=== PATIENT | female | born 1940 | race Caucasian/White ===

== ENCOUNTER 2017-12-28 09:55 | Outpatient (CLI) | payer MEDICARE, SELFPAY ==
[2017-12-28 11:15] LABS: Abs Immature Grans 0.01 k/cumm (0.0-0.09); Absolute Basophil Count 0.01 k/cumm (0.0-0.2); Absolute Eosinophil Count 0.03 k/cumm (0.0-0.7); Absolute Lymphocyte Count 1.19 k/cumm (1.2-3.4); Absolute Monocyte Count 0.74 k/cumm (0.11-0.7); Absolute Neutrophil Count 4.07 k/cumm (1.2-6.7); Basophils % 0.2; Eosinophils % 0.5; HCT 40.5 % (36.0-46.0); HGB 12.8 g/dL (12.0-15.5); Immature Grans % 0.2; Lymphocytes % 19.7; Mean Corp. HGB Concentration 31.6 g/dL (32.0-36.0); Mean Corpuscular Hemoglobin 30.3 pg (27.0-33.0); Mean Platelet Volume 9.9 fL (8.0-11.0); Monocytes % 12.2; Neutrophils % 67.2; Platelet Count 253 x1000/uL (130-400); RBC 4.22 m/cumm (4.00-5.20); RBC Distribution Width 13.5 % (11.7-14.6); White Blood Cell Count 6.05 k/cumm (4.4-10.8)
[2017-12-28 12:12] LABS: Hemoglobin A1C 5.9 % (4.5-6.2)
[2017-12-28 13:33] LABS: ALT 32 U/L (12-78); AST 24 U/L (15-37); Alkaline Phosphatase 75 U/L (46-116); Anion Gap 8.2 mmol/L (3-11); BUN 18 mg/dL (7-18); Bilirubin, Total 0.6 mg/dL (0.2-1.0); CO2 28.8 mmol/L (21.0-32.0); CREATININE 1.13 mg/dL (0.55-1.02); Calcium 9.7 mg/dL (8.5-10.1); Chloride 103 mmol/L (98-107); Cholesterol 257 mg/dL (50-200); Estimated GFR 46.45 (mL/min/1.73m2); Glucose 80 mg/dL (70-100); HDL Cholesterol 82 mg/dL (40-60); LDL CHOLESTEROL 159 mg/dL (<100); Potassium 4.4 mmol/L (3.5-5.1); Sodium 140 mmol/L (136-145); TSH (W/Ref FT4) 0.43 uIU/mL (0.358-3.74); Total Protein 7.2 g/dL (6.4-8.2); Triglyceride 95 mg/dL (30-150)
== END 2017-12-28 10:15 ==
PROVIDERS: PCP Family Medicine; Visit Provider Internal Medicine
DX: R73.09 Other abnormal glucose (principal); I10 Essential (primary) hypertension; R41.3 Other amnesia
CPT/HCPCS: 80053; 80061; 83721; 83036; 84443; 85025

== ENCOUNTER 2018-10-19 10:51 | Outpatient (REF) | payer MEDICARE, SELFPAY ==
--- NOTE | 2018-10-19 09:59 | SKI_PTH ---
PATIENT: Brittany Marks LOC: [facility] U#:[id number] AGE/SX: 78/F ROOM: RE10/19/[address]: Barrington Hicks MD : [id number] BED: DIS: 10/19/2018 SPEC #: [id number] RECD: 10/19/18 17:58 STATUS: KENDALL REQ #: [id number] JOSHUA: 10/19/18 09:[address]: Barrington Hicks DEPT: Surgical Specimen RECD BY: Queta Desai ENTERED: 10/19/18 17:59 SP TYPE: DARWIN DON DR: Bro Montero MD Tissues: 1 - SKIN BIOPSY(SHAVE/PUNCH) Procedures: SKIN LEVEL 4 Comments: [id number]
== END 2018-10-19 11:11 ==
LOC: LBN 10:51
PROVIDERS: PCP Family Medicine; Visit Provider Otolaryngology
DX: D04.39 Carcinoma in situ of skin of other parts of face (principal)
CPT/HCPCS: 88305

== ENCOUNTER 2019-09-13 19:15 | Outpatient (REF) | payer MEDICARE, SELFPAY ==
[2019-09-13 19:36] LABS: CREATININE 1.17 mg/dL (0.55-1.02); Potassium 4.4 mmol/L (3.5-5.1)
== END 2019-09-13 19:35 ==
LOC: LBN 19:15
PROVIDERS: PCP Nurse Practitioner; Visit Provider Nurse Practitioner
DX: I10 Essential (primary) hypertension (principal)
CPT/HCPCS: 82565; 84132

== ENCOUNTER 2020-10-03 10:21 | Day surgery (SDC) | payer MEDICARE, SELFPAY ==
--- NOTE | 2020-10-03 10:56 | W.ANESPRE ---
General Info Date of Service Date Performed: 10/03/20 Height: 5 ft 3 in Weight: 50.349 kg Body Mass Index (BMI): 19.6 Surgical Procedure: Operation Date: 10/03/20 13:40 Proposed Procedures Side Surgeon p Cataract Extraction with IOL Implant Lance Piña MD Meds Allergies and Home Medications Allergies Allergy/AdvReac Type Severity Reaction Status Date / Time codeine Allergy Unknown Unverified 10/03/20 10:56 nabumetone Allergy Unknown Unverified 10/03/20 10:56 Home Medication Medication Instructions Recorded timolol maleate 1 drp OPHTHALMIC QAM drp 10/18/12 latanoprost 1 drp OU HS drp 10/30/12 lisinopril 5 mg tablet 5 mg PO DAILY #90 tab-cap 08/28/20 Current Visit Medications: Current Medications Generic Name Dose Route Start Last Admin Trade Name Freq PRN Reason Stop Dose Admin Acetaminophen 1,000 mg 10/03/20 06:00 Acetaminophen 500 Mg Tab PO Q4H PRN PRN Miscellaneous Medication 0 ml 10/03/20 06:00 Prednisolone 1%, Moxifloxacin 0.5%, Nepafenac 0.1% 5ml Btl OD DIRECTED AMAURY Miscellaneous Medication 0 ml 10/03/20 06:00 Tropicam./Phenyleph. 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; SEBORRHEIC KERATOSIS RBC microcytosis (01/22/13) Surgical History Surgical History Skin Cancer Removal (06/14/13) LEFT CHEEK Tobacco Smoking/Tobacco Use Status: Former Tobacco Use Alcohol Alcohol Intake: never Substance Use Substance use: Never Substance use type: does not use Vital Signs and Lab Results Lab Results Blood Type / Crossmatch: No Data to Display Complete Blood Count: No Data to Display Complete Metabolic Panel: No Data to Display Liver Function Panel: No Data to Display Coagulation Panel: No Data to Display Cardiac Panel: No Data to Display Arterial Blood Gas: No Data to Display Venous Blood Gas: No Data to Display Pancreas Panel: No Data to Display Thyroid Panel: No Data to Display Infectious Disease: No Data to Display Blood Cultures: No Data to Display Toxicology Panel: No Data to Display Anesthesia Assessment and Plan Anesthesia History Personal History: No History of Anesthesia Complications Family History: No Family History of Anesthesia Complications Exercise Tolerance Exercise Tolerance: Metabolic Equivalents>4 Pertinent Negatives Pertinent Negatives: No Symptoms of GERD, No Major Cardiovascular Symptoms or Complaints, No Major Pulmonary Symptoms or Complaints and Other (Patient has severe dementia. Son is her POA, came back to sign for her. Patient is pleasant. ) Cardiac & Pulmonary Exam Cardiac Exam: Normal S1/S2 Heart Sounds Pulmonary Exam: Clear Bilateral Breath Sounds Airway Exam Known Difficult Airway: No Mallampati Class: 2 Mouth Opening: Normal (> 3cm) Thyromental Distance: Greater than 3 cm Neck Range of Motion: Full ROM Neck Circumference: Normal Teeth Condition: Normal Dentition ASA Classification ASA Score: ASA 2 Emergency Case?: No NPO Status NPO Status: NPO Clears >2 hours, Solids >8 hours Anesthesia Plan Resuscitation Status: Full Code Anesthesia Technique: MAC Anesthesia Airway Planned: Natural Airway Monitors Used: Standard Monitors Preoperative Comments:: Asked for PIV placement prior due to patient history of severe dementia.
[2020-10-03] MEDS: Tropicam./Phenyleph. (1/2.5%) 5 ML BTL OD ×3 (10:57→11:11)
[2020-10-03 10:58] VITALS: BP 164/82; PULSE 58; RESP 16; TEMP 36.2; O2SAT 98
[2020-10-03 10:59] VITALS: BMI 19.6
[2020-10-03] MEDS: Lactated Ringers 1,000 ML 30 ML IV (11:35)
[2020-10-03] MEDS: Tetracaine 0.5% 4 ML BTL OD (12:01)
[2020-10-03] MEDS: Lidocaine 1% Pres-Free 5 ML VIAL (12:02)
[2020-10-03] MEDS: Balanced Salt Soln.-PLUS 500 ML BAG (12:03)
[2020-10-03] MEDS: Lidocaine 2% Jelly 6 ML SYR (12:04)
[2020-10-03] MEDS: Duovisc Viscoelastic System EACH 1 EACH (12:04)
[2020-10-03] MEDS: Povidone-Iodine Ophth 30 ML BTL (12:05)
[2020-10-03 12:20] VITALS: BP 171/86; PULSE 66; RESP 18; TEMP 36.9; O2SAT 99
--- NOTE | 2020-10-03 12:23 | W.PM.DSUDISC ---
Discharge Plan Disposition Patient Disposition: HOME Condition: Good Discharge Details Attending Provider: Lance Piña Primary Care Provider: Fallon Beltre Home Meds and New Rx's Prescriptions: No Action timolol maleate 5 ML gel forming solution 1 drp Ophthalmic QAM RF: 0 latanoprost 2.5 ML drops 1 drp OU HS RF: 0 lisinopril 5 mg tablet 5 mg PO DAILY Qty: 90 RF: 4 Discharge Instructions Stand Alone Forms: Post-op Topical Cataract, Layo Oshea (DSU) Discharge Orders Discharge Orders: Discharge Order (Routine); Ordered 10/03/20 Ordered By: Lance Piña DS: Diagnosis Discharge Diagnosis (1) Cortical cataract of right eye: Status: Resolved (2) Nuclear sclerotic cataract of right eye: Status: Resolved
--- NOTE | 2020-10-03 12:25 | ROE_ITS ---
Date of service: 10/03/20 Time of Service: 12:25 Operative Note Operative Note DATE OF PROCEDURE: 10/03/20 PRE-OP DIAGNOSIS: Nuclear/cortical cataract, right eye POST-OP DIAGNOSIS: same PROCEDURE: Cataract extraction using phacoemulsification with intraocular lens implant, right eye SURGEON: Lance Piña ANESTHESIA TYPE: Local By Surgeon and MAC Refer to Anesthesia Record ESTIMATED BLOOD LOSS: 0 PATHOLOGY: none sent COMPLICATIONS: None Patient was transported to: same day Patient's condition: stable Implants: Ulysses & Ulysses/JANET Tecnis [id number] Indications: Progressive visual loss due to cataract, right eye Procedure Description: CATARACT SURGERY OPERATIVE REPORT PREOPERATIVE DIAGNOSIS: 1. Nuclear/cortical cataract, right eye POSTOPERATIVE DIAGNOSIS: Same OPERATION: 1. Cataract extraction using phacoemulsification with posterior chamber intraocular lens implant, right eye. IOL: IOL Disk Recoater/Model: Ulysses & Ulysses / JANET Tecnis [id number] IOL Power: + 18.5 diopters IOL Serial Number: [id number] Optic Diameter: 6.0mm Haptic/Overall Diameter: 13.0mm PHACO INFO: Arturo [employer] Mediaurion Vision System with OZil and Active Fluidics Cumulative Dispersed Energy (CDE): 9.36 seconds SURGEON: Lance Piña MD, CORTEZ ANESTHESIA: Monitored Anesthesia Care (MAC), with local sub-tenon's anesthetic infiltration COMPLICATIONS: None SPECIMENS: None INDICATIONS FOR PROCEDURE: The patient is an 80-year-old lady with history of diminished visual acuity in her right eye secondary to the development of nuclear and cortical cataract. She was significantly symptomatic that she desired cataract surgery and attempt to improve and maximize her vision. The option of cataract surgery was offered to the patient and she wished to proceed. PROCEDURE: The correct surgical eye was identified and marked as the right eye and the pupil was dilated in the preoperative area using mydriatics and cycloplegics. The dilated pupil size was 7.5 mm. She elected to proceed without oral sedation. The patient was brought to the operating room where cardiopulmonary monitoring was instituted and surgical time-out was performed, confirming the correct operative eye and IOL power. Topical anesthesia was administered and ophthalmic povidone-iodine 5% was instilled into the conjunctival fornices. Lidocaine gel was applied to the cornea and the cristino-ocular area was prepped with Betadine 10% solution and draped in the usual sterile fashion for intraocular surgery, including an aperture drape. A Tegaderm transparent film dressing was cut in half and used to cover the lashes and lid margins. Care was taken to sequester the lashes and lid margins under the Tegaderm dressing. A lid speculum was placed between the lids of the operative eye and the Sue-Adrienne operating microscope was maneuvered into position. Derek scissors were then used to make a conjunctival buttonhole approximately 6mm posterior to the limbus in the inferonasal quadrant. Blunt dissection was carried out to expose bare sclera, and a blunt-tipped sub-tenon?s anesthesia cannula was introduced and passed posteriorly along the globe where non- preserved plain lidocaine was injected into posterior sub-Tenon?s space. A sideport knife was used to make a paracentesis port inferotemporally. Intraocular phenylephrine/lidocaine was injected into the anterior chamber. The anterior chamber was filled with viscoelastic. A 2.4mm keratome knife was used to create a half-thickness groove at the limbus and then to construct a three- plane near-clear corneal tunnel extending 2.0mm into clear cornea superiortemporally. A flap was raised on the anterior capsule and capsulorhexis forceps were used to complete a continuous curvilinear capsulorhexis of 5.5 mm. Balanced salt solution was then used to perform cortical cleaving hydrodissection and nuclear hydrodelineation until the lens could be freely rotated within the capsular bag. The lens nucleus was then disassembled and removed within the capsular bag and iris plane using phacoemulsification. Residual cortical material was removed using the I/A handpiece. The posterior capsule was carefully polished to remove as much residual lens epithelial cells as safely possible. The capsular bag was then inflated and the anterior chamber deepened with viscoelastic. The lens implant described above was inserted into the capsular bag using the JANET [employer] Injector. A Kuglen hook was used to dial the IOL into position. Residual viscoelastic was then removed first from posterior to the IOL, then from the anterior chamber using the I/A handpiece. The lens implant was noted to center nicely within the capsular bag. The incisions were stromally hydrated, and the anterior chamber was reformed using BSS. Then 0.5cc of moxifloxacin 1.0mg/ml were injected into the capsular bag and anterior chamber. The incisions were checked with a Weck spear and found to be secure. Several drops of ophthalmic povidone-iodine 5% were then applied to the eye followed by two drops of Imprimis combination prednisolone/moxifloxacin/nepafenac solution. The drapes were removed and a clear plastic protective eye shield was placed over the eye. The patient was then returned to Same Day Surgery in stable condition.
--- NOTE | 2020-10-03 13:00 | W.ANESPOSTOP ---
Postoperative Evaluation Date, Time and Location Date Performed: 10/03/20 Time Performed: 12:22 Patient Location: Day Surgery Unit Vital Signs Most Recent Imported Vital Signs: Most Recent Vital Signs Temp Pulse Resp BP Pulse Ox 36.9 C 66 18 171/86 H 99 10/03/20 12:20 10/03/20 12:20 10/03/20 12:20 10/03/20 12:20 10/03/20 12:20 Pain Score Most Recent Pain Score: Most Recent Pain Score Pain Level 0 10/03/20 12:20 Assessment Mental Status: Awake (Alert & Oriented to Patient Baseline) Airway and Respiratory Function: Patent airway with normal (patient baseline) respiratory exam Cardiovascular Function: Hemodynamically Stable Hydration Status: Adequately Hydrated Nausea & Vomiting: No Nausea or Vomiting Pain: Pt. Denies Any Pain Peripheral Nerve Block: Patient did not receive a nerve block
== END 2020-10-03 13:06 | disposition home or self-care (01) ==
PROVIDERS: PCP Nurse Practitioner; Visit Provider Ophthalmology
PROC: (CPT 66984; principal; 2020-10-03 13:30)
DX: H25.11 Age-related nuclear cataract, right eye (principal); I10 Essential (primary) hypertension; M06.9 Rheumatoid arthritis, unspecified
CPT/HCPCS: 66984; V2632

== ENCOUNTER 2020-10-15 03:38 | Outpatient (CLI) | payer MEDICARE, SELFPAY ==
[2020-10-15 10:33] LABS: Source Nasal/Nares
[2020-10-15 12:51] LABS: COVID-19 PCR Negative (Negative)
== END 2020-10-15 03:39 | disposition home or self-care (01) ==
LOC: LBO 03:38
PROVIDERS: PCP Nurse Practitioner; Visit Provider Ophthalmology
DX: Z20.822 Contact with and (suspected) exposure to COVID-19 (principal); Z01.818 Encounter for other preprocedural examination
CPT/HCPCS: 87635

== ENCOUNTER 2020-10-17 09:38 | Day surgery (SDC) | payer MEDICARE, SELFPAY ==
[2020-10-17 09:50] VITALS: BP 150/90; PULSE 64; RESP 16; TEMP 36.7; O2SAT 98
[2020-10-17] MEDS: Tropicam./Phenyleph. (1/2.5%) 5 ML BTL OS ×3 (10:16→10:29)
--- NOTE | 2020-10-17 10:32 | W.ANESPRE ---
General Info Date of Service Date Performed: 10/17/20 Height: 5 ft 3 in Weight: 50.2 kg Body Mass Index (BMI): 19.5 Surgical Procedure: Operation Date: 10/17/20 12:40 Proposed Procedures Side Surgeon p Cataract Extraction with IOL Implant Left Lance Piña MD Meds Allergies and Home Medications Allergies Allergy/AdvReac Type Severity Reaction Status Date / Time codeine Allergy Unknown Unverified 10/17/20 09:48 nabumetone Allergy Unknown Unverified 10/17/20 09:48 Home Medication Medication Instructions Recorded timolol maleate 1 drp OPHTHALMIC QAM drp 10/18/12 latanoprost 1 drp OU HS drp 10/30/12 lisinopril 5 mg tablet 5 mg PO DAILY #90 tab-cap 08/28/20 Current Visit Medications: Current Medications Generic Name Dose Route Start Last Admin Trade Name Freq PRN Reason Stop Dose Admin Acetaminophen 1,000 mg 10/17/20 06:00 Acetaminophen 500 Mg Tab PO Q4H PRN PRN Miscellaneous Medication 0 ml 10/17/20 06:00 Prednisolone 1%, Moxifloxacin 0.5%, Nepafenac 0.1% 5ml Btl OS DIRECTED AMAURY Miscellaneous Medication 0 ml 10/17/20 06:00 10/17/20 10:29 Tropicam./Phenyleph. 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; SEBORRHEIC KERATOSIS RBC microcytosis (01/22/13) Surgical History Surgical History (Updated 10/17/20 @ 09:48 by Cynthia Mercedes) Hx of cataract surgery Skin Cancer Removal (06/14/13) LEFT CHEEK Tobacco Smoking/Tobacco Use Status: Former Tobacco Use Alcohol Alcohol Intake: never Substance Use Substance use: Never Substance use type: does not use Vital Signs and Lab Results Vital Signs Most Recent Vital Signs in EMR: Most Recent Vital Signs Temp Pulse Resp BP Pulse Ox 36.7 C 64 16 150/90 H 98 10/17/20 09:50 10/17/20 09:50 10/17/20 09:50 10/17/20 09:50 10/17/20 09:50 Lab Results Blood Type / Crossmatch: No Data to Display Complete Blood Count: No Data to Display Complete Metabolic Panel: No Data to Display Liver Function Panel: No Data to Display Coagulation Panel: No Data to Display Cardiac Panel: No Data to Display Arterial Blood Gas: No Data to Display Venous Blood Gas: No Data to Display Pancreas Panel: No Data to Display Thyroid Panel: No Data to Display Infectious Disease: Coronavirus (COVID-19)(PCR) Negative (Negative) 10/15/20 08:00 10/15/20 Coronavirus 2019 Source Nasal/Nares 10/15/20 08:00 10/15/20 Blood Cultures: No Data to Display Toxicology Panel: No Data to Display Anesthesia Assessment and Plan Anesthesia History Personal History: No History of Anesthesia Complications Family History: No Family History of Anesthesia Complications Exercise Tolerance Exercise Tolerance: Metabolic Equivalents>4 Cardiac & Pulmonary Exam Cardiac Exam: Normal S1/S2 Heart Sounds Pulmonary Exam: Clear Bilateral Breath Sounds Airway Exam Known Difficult Airway: No Mallampati Class: 2 Mouth Opening: Normal (> 3cm) Thyromental Distance: Greater than 3 cm Neck Range of Motion: Full ROM Neck Circumference: Normal Teeth Condition: Normal Dentition ASA Classification ASA Score: ASA 2 Emergency Case?: No NPO Status NPO Status: NPO Clears >2 hours, Solids >8 hours Anesthesia Plan Resuscitation Status: Full Code Anesthesia Technique: MAC Anesthesia Airway Planned: Natural Airway Monitors Used: Standard Monitors Preoperative Comments::
[2020-10-17 10:33] VITALS: BMI 19.5
[2020-10-17] MEDS: Tetracaine 0.5% 4 ML BTL OS (10:58)
[2020-10-17] MEDS: Duovisc Viscoelastic System EACH 1 EACH (10:59)
[2020-10-17] MEDS: Lidocaine 1% Pres-Free 5 ML VIAL (10:59)
[2020-10-17] MEDS: Balanced Salt Soln.-PLUS 500 ML BAG (10:59)
[2020-10-17] MEDS: Lidocaine 2% Jelly 6 ML SYR (11:00)
[2020-10-17] MEDS: Povidone-Iodine Ophth 30 ML BTL (11:01)
--- NOTE | 2020-10-17 11:22 | W.PM.DSUDISC ---
Discharge Plan Disposition Patient Disposition: HOME Condition: Good Discharge Details Attending Provider: Lance Piña Primary Care Provider: Fallon Beltre Home Meds and New Rx's Prescriptions: No Action timolol maleate 5 ML gel forming solution 1 drp Ophthalmic QAM RF: 0 latanoprost 2.5 ML drops 1 drp OU HS RF: 0 lisinopril 5 mg tablet 5 mg PO DAILY Qty: 90 RF: 4 Discharge Instructions Stand Alone Forms: Post-op Topical Cataract, Layo Oshea (DSU) Discharge Orders Discharge Orders: Discharge Order (Routine); Ordered 10/17/20 Ordered By: Lance Piña DS: Diagnosis Discharge Diagnosis (1) Cortical cataract of left eye: Status: Resolved (2) Nuclear sclerotic cataract of left eye: Status: Resolved
--- NOTE | 2020-10-17 11:23 | W.PM.OP ---
Date of service: 10/17/20 Time of Service: 11:23 Operative Note Operative Note DATE OF PROCEDURE: 10/17/20 PRE-OP DIAGNOSIS: Nuclear/cortical cataract, left eye POST-OP DIAGNOSIS: same PROCEDURE: Cataract extraction using phacoemulsification with intraocular lens implant, left eye SURGEON: Lance Piña ANESTHESIA TYPE: Local By Surgeon and MAC Refer to Anesthesia Record PATHOLOGY: none sent COMPLICATIONS: None Patient was transported to: same day Patient's condition: stable Implants: Ulysses and Ulysses / [employer] Tecnis [id number] Indications: Progressive decreased vision due to cataract, left eye, with poor red reflex Procedure Description: CATARACT SURGERY OPERATIVE REPORT PREOPERATIVE DIAGNOSIS: 1. Nuclear/cortical cataract, left eye POSTOPERATIVE DIAGNOSIS: Same OPERATION: 1. Cataract extraction using phacoemulsification with posterior chamber intraocular lens implant, left eye. IOL: IOL Water Quality Assistant/Model: Ulysses & Ulysses / JANET Tecnis [id number] IOL Power: + 18.5 diopters IOL Serial Number: [id number] Optic Diameter: 6.0 mm Haptic/Overall Diameter: 13.0 mm PHACO INFO: Arturo [employer]urion Vision System with OZil and Active Fluidics Cumulative Dispersed Energy (CDE): 10.34 seconds SURGEON: Lance Piña MD, CORTEZ ANESTHESIA: Monitored A [facility] (MAC), with local sub-tenon's anesthetic infiltration COMPLICATIONS: None SPECIMENS: None INDICATIONS FOR PROCEDURE: The patient is a 80-year-old lady with history of diminished visual acuity in both eyes secondary to the development of bilateral nuclear and cortical cataract. She is already undergone cataract surgery in the right eye and is doing well postoperatively. She now presents for cataract surgery in the left eye. PROCEDURE: The correct surgical eye was identified and marked as the left eye and the pupil was dilated in the preoperative area using mydriatics and cycloplegics. The dilated pupil size was 7.0 mm. She elected to proceed without oral sedation. The patient was brought to the operating room where cardiopulmonary monitoring was instituted and surgical time-out was performed, confirming the correct operative eye and IOL power. Topical anesthesia was administered and ophthalmic povidone-iodine 5% was instilled into the conjunctival fornices. Lidocaine gel was applied to the cornea and the cristino-ocular area was prepped with Betadine 10% solution and draped in the usual sterile fashion for intraocular surgery, including an aperture drape. A Tegaderm transparent film dressing was cut in half and used to cover the lashes and lid margins. Care was taken to sequester the lashes and lid margins under the Tegaderm dressing. A lid speculum was placed between the lids of the operative eye and the Sue-Adrienne operating microscope was maneuvered into position. Derek scissors were then used to make a conjunctival buttonhole approximately 6mm posterior to the limbus in the inferonasal quadrant. Blunt dissection was carried out to expose bare sclera, and a blunt-tipped sub-tenon?s anesthesia cannula was introduced and passed posteriorly along the globe where non-preserved plain lidocaine was injected into posterior sub-Tenon?s space. A sideport knife was used to make a paracentesis port superiorly/superiortemporally. Intraocular phenylephrine/lidocaine was injected int the anterior chamber.. The anterior chamber was filled with viscoelastic. A 2.4mm keratome knife was used to create a half-thickness groove at the limbus and then to construct a three-plane near-clear corneal tunnel extending 2.0mm into clear cornea at the 3:00 position. A flap was raised on the anterior capsule and capsulorhexis forceps were used to complete a continuous curvilinear capsulorhexis of 5.0 mm. Balanced salt solution was then used to perform cortical cleaving hydrodissection and nuclear hydrodelineation until the lens could be freely rotated within the capsular bag. The lens nucleus was then disassembled and removed within the capsular bag and iris plane using phacoemulsification. Residual cortical material was removed using the 45-degree angled silicone I/A tip with 0.3mm port. The posterior capsule was carefully polished to remove as much residual lens epithelial cells as safely possible. The capsular bag was then inflated and the anterior chamber deepened with viscoelastic. The lens implant described above was inserted into the capsular bag using the JANET [employer] Injector. A Kuglen hook was used to dial the IOL into position. Residual viscoelastic was then removed first from posterior to the IOL, then from the anterior chamber using the I/A handpiece. The lens implant was noted to center nicely within the capsular bag. The incisions were stromally hydrated, and the anterior chamber was reformed using BSS. Then 0.5cc of moxifloxacin 1.0mg/ml were injected into the capsular bag and anterior chamber. The incisions were checked with a Weck spear and found to be secure. Several drops of ophthalmic povidone-iodine 5% were then applied to the eye followed by two drops of Imprimis combination prednisolone/moxifloxacin/nepafenac solution. The drapes were removed and a clear plastic protective eye shield was placed over the eye. The patient was then returned to Same Day Surgery in stable condition.
[2020-10-17 11:25] VITALS: BP 158/81; PULSE 69; RESP 18; TEMP 35.7; O2SAT 97
--- NOTE | 2020-10-17 11:45 | W.ANESPOSTOP ---
Postoperative Evaluation Date, Time and Location Date Performed: 10/17/20 Time Performed: 11:27 Patient Location: Day Surgery Unit Vital Signs Most Recent Imported Vital Signs: Most Recent Vital Signs Temp Pulse Resp BP Pulse Ox 35.7 C L 69 18 158/81 H 97 10/17/20 11:25 10/17/20 11:25 10/17/20 11:25 10/17/20 11:25 10/17/20 11:25 Pain Score Most Recent Pain Score: Most Recent Pain Score Pain Level 0 10/17/20 11:25 Assessment Mental Status: Awake (Alert & Oriented to Patient Baseline) Airway and Respiratory Function: Patent airway with normal (patient baseline) respiratory exam Cardiovascular Function: Hemodynamically Stable Hydration Status: Adequately Hydrated Nausea & Vomiting: No Nausea or Vomiting Pain: Pt. Denies Any Pain Peripheral Nerve Block: Patient did not receive a nerve block
== END 2020-10-17 11:45 | disposition home or self-care (01) ==
PROVIDERS: PCP Nurse Practitioner; Visit Provider Ophthalmology
PROC: (CPT 66984; principal; 2020-10-17 12:30)
DX: H25.12 Age-related nuclear cataract, left eye (principal)
CPT/HCPCS: 66984; V2632

== ENCOUNTER 2020-11-26 15:35 | Outpatient (REF) | payer MEDICARE, SELFPAY ==
[2020-11-26 15:58] LABS: ALT 36 U/L (14-59); AST 21 U/L (15-37); Albumin 3.5 g/dL (3.4-5.0); Alkaline Phosphatase 77 U/L (46-116); Anion Gap 6.4 mmol/L (3-11); BUN 20 mg/dL (7-18); Bilirubin, Total 0.3 mg/dL (0.2-1.0); CO2 30.6 mmol/L (21.0-32.0); CREATININE 1.1 mg/dL (0.55-1.02); Calcium 9.2 mg/dL (8.5-10.1); Calculated LDL 179 mg/dL (<100); Chloride 106 mmol/L (98-107); Cholesterol 285 mg/dL (<200); Estimated GFR 47.55 (mL/min/1.73m2); Glucose 118 mg/dL (74-106); HDL Cholesterol 85 mg/dL (40-60); Potassium 4.1 mmol/L (3.5-5.1); Sodium 143 mmol/L (136-145); Total Protein 6.4 g/dL (6.4-8.2); Triglyceride 105 mg/dL (<150)
[2020-11-26 16:29] LABS: Bilirubin Negative (Negative); Blood Negative (Negative); Clarity Clear (Clear); Glucose Negative (Negative); Ketones Negative (Negative); Leukocyte Esterase Trace (Negative); Nitrite Negative (Negative); Urobilinogen 0.2 EU/dL (Up TO 0.2); pH 5.5 (5-8)
[2020-11-26 17:04] LABS: Bacteria Negative HPF (Negative); C & S Indicated? C&S Done As Ordered; Crystals Negative HPF (Negative); Epithelial Cells Negative HPF (Negative); Mucus Negative (Negative); RBC 0-2 HPF (0-2)
== END 2020-11-26 15:36 | disposition home or self-care (01) ==
LOC: NCHCN 15:35
PROVIDERS: PCP Nurse Practitioner; Visit Provider Nurse Practitioner Family
DX: I10 Essential (primary) hypertension (principal); F03.90 Unspecified dementia, unspecified severity, without behavioral disturbance, psychotic disturbance, mood disturbance, and anxiety; R41.0 Disorientation, unspecified; R82.998 Other abnormal findings in urine
CPT/HCPCS: 80053; 80061; 81003; 81015; 87086

== ENCOUNTER 2021-02-13 11:15 | Outpatient (CLI) | payer MEDICARE, SELFPAY ==
[2021-02-15 15:32] LABS: COVID-19 RT-PCR UVMMC Result Negative (Negative)
== END 2021-02-13 11:16 | disposition home or self-care (01) ==
PROVIDERS: PCP Nurse Practitioner; Visit Provider Nurse Practitioner Family
DX: Z20.822 Contact with and (suspected) exposure to COVID-19 (principal)
CPT/HCPCS: U0003

== ENCOUNTER 2021-05-23 14:42 | Outpatient (REF) | payer MEDICARE, SELFPAY ==
[2021-05-23 20:28] LABS: Anion Gap 6.6 mmol/L (3-11); BUN 25 mg/dL (7-18); CO2 29.4 mmol/L (21.0-32.0); CREATININE 1.3 mg/dL (0.55-1.02); Calcium 9.4 mg/dL (8.5-10.1); Chloride 103 mmol/L (98-107); Estimated GFR 39.21 (mL/min/1.73m2); Glucose 164 mg/dL (74-106); Sodium 139 mmol/L (136-145)
== END 2021-05-23 14:43 | disposition home or self-care (01) ==
LOC: NCHCN 14:42
PROVIDERS: PCP Nurse Practitioner; Visit Provider Nurse Practitioner Family
DX: I10 Essential (primary) hypertension (principal); N28.89 Other specified disorders of kidney and ureter
CPT/HCPCS: 80048

== ENCOUNTER 2021-05-27 17:37 | Outpatient (REF) | payer MEDICARE, SELFPAY ==
[2021-05-27 15:07] LABS: Hemoglobin A1C 5.9 % (<5.7)
== END 2021-05-27 17:38 | disposition home or self-care (01) ==
LOC: NCHCN 17:37
PROVIDERS: PCP Nurse Practitioner; Visit Provider Nurse Practitioner Family
DX: R73.9 Hyperglycemia, unspecified (principal)
CPT/HCPCS: 83036

== ENCOUNTER 2021-06-12 21:38 | Outpatient (REF) | payer MEDICARE, SELFPAY ==
[2021-06-13 14:38] LABS: COVID-19 RT-PCR UVMMC Result Presumptive Positive (Negative)
== END 2021-06-12 21:39 | disposition home or self-care (01) ==
LOC: NCHCN 21:38
PROVIDERS: PCP Nurse Practitioner; Visit Provider Nurse Practitioner Family
DX: Z20.822 Contact with and (suspected) exposure to COVID-19 (principal)
CPT/HCPCS: U0003; U0005